=== PATIENT | female | born 1995 | race African-American/Black ===

== ENCOUNTER 2022-09-17 07:26 | Emergency (ER) | payer MEDICAID, OTHER ==
[~2022-09-17] VITALS: Ht 170.2 cm; Wt 72.0 kg
[2022-09-17] MEDS ORDERED: SODIUM CHLORIDE 0.9% 1,000 ML IV ONE (07:45)
[2022-09-17] MEDS ORDERED: LORAZEPAM 1MG TABLET PO ONE (07:45)
[2022-09-17 08:26] LABS: BASOPHILS % 0.8 % (0.0-2.0); EOSINOPHILS % 1.4 % (0.0-5.0); HEMATOCRIT. 37.6 % (36.0-48.0); HEMOGLOBIN. 12.8 g/dL (12.0-16.0); LYMPHOCYTES % 30.8 % (20.0-50.0); MEAN CORPUSCULAR HEMOGLOBIN 31.2 pg (28.0-32.0); MEAN CORPUSCULAR VOLUME 91.6 fL (81.0-99.0); MEAN PLATELET VOLUME 9.3 fl (7.4-10.4); MONOCYTES % 8.1 % (2.0-8.0); NEUTROPHILS % 58.9 % (40.0-76.0); PLATELET 278 x1000/uL (130-400); RED BLOOD CELL COUNT 4.11 mill/uL (4.2-5.4); RED CELL DISTRIBUTION WIDTH 13.8 % (11.6-14.6)
[2022-09-17 08:33] LABS: CHLORIDE 110 mEq/L (98-107)
[2022-09-17 08:42] LABS: ETHANOL BLOOD 90 mg/dL
[2022-09-17 08:58] LABS: HCG SCREEN NEGATIVE
[2022-09-17 09:04] LABS: CLARITY URINE CLEAR (CLEAR); COLOR URINE YELLOW (YELLOW); KETONES URINE TRACE (NEGATIVE); LEUKOCYTE ESTERASE URINE TRACE (NEGATIVE); NITRITE URINE NEGATIVE (NEGATIVE); OCCULT BLOOD URINE NEGATIVE (NEGATIVE); PH URINE 5.5 (4.5-8.0); PROTEIN URINE NEGATIVE (NEGATIVE); SPECIFIC GRAVITY URINE 1.005 (1.005-1.030); UROBILINOGEN URINE 0.2 E.U./dL (0.2-1.0)
[2022-09-17 10:17] LABS: *AMPHETAMINES SCREEN URINE NEGATIVE (NEGATIVE); *BARBITURATES SCREEN URINE NEGATIVE (NEGATIVE); METHADONE URINE SCREEN NEGATIVE (NEGATIVE); OPIATES URINE SCREEN NEGATIVE (NEGATIVE); PHENCYCLIDINE URINE SCREEN NEGATIVE (NEGATIVE)
[2022-09-17 10:28] LABS: *BENZODIAZEPINES SCREEN URINE PRESUMTIVE POSITIVE (NEGATIVE); *COCAINE SCREEN URINE PRESUMTIVE POSITIVE (NEGATIVE); CANNABINOID URINE SCREEN PRESUMTIVE POSITIVE (NEGATIVE)
[2022-09-17 11:42] VITALS: BP 110/71
== END 2022-09-17 11:43 | disposition home or self-care (01) ==
LOC: ER 07:26
DX: R56.9 Unspecified convulsions (principal)
CPT/HCPCS: 36415; 80053; 80305; 80320; 81003; 81025; 84703; 85025; 93005; 96360; 96361; 99284; J7030; G0480

== ENCOUNTER 2023-03-06 02:24 | Emergency (ER) | payer MEDICAID ==
[~2023-03-06] VITALS: Ht 172.7 cm; Wt 91.0 kg
[2023-03-06] MEDS ORDERED: LORAZEPAM 2MG/ML CPJ IV ONE (03:30)
[2023-03-06] MEDS ORDERED: SODIUM CHLORIDE 0.9% 1,000 ML IV ONE (03:30)
[2023-03-06 03:42] LABS: CHLORIDE 112 mEq/L (98-107)
[2023-03-06 03:45] LABS: BASOPHILS % 1.2 % (0.0-2.0); EOSINOPHILS % 1.5 % (0.0-5.0); HEMATOCRIT. 37.5 % (36.0-48.0); HEMOGLOBIN. 12.7 g/dL (12.0-16.0); LYMPHOCYTES % 37.1 % (20.0-50.0); MEAN CORPUSCULAR HEMOGLOBIN 31.5 pg (28.0-32.0); MEAN CORPUSCULAR VOLUME 92.9 fL (81.0-99.0); MEAN PLATELET VOLUME 9.8 fl (7.4-10.4); MONOCYTES % 6.4 % (2.0-8.0); NEUTROPHILS % 53.8 % (40.0-76.0); PLATELET 314 x1000/uL (130-400); RED BLOOD CELL COUNT 4.03 mill/uL (4.2-5.4); RED CELL DISTRIBUTION WIDTH 13.9 % (11.6-14.6)
[2023-03-06] MEDS ORDERED: ONDANSETRON HCL 4MG/2ML INJ IV ONE ×2 (04:15→05:30)
[2023-03-06] MEDS ORDERED: ONDA4TAB50 MT (05:54)
[2023-03-06 06:59] VITALS: BP 146/77
[2023-03-06 07:09] LABS: HCG SCREEN NEGATIVE
== END 2023-03-06 07:00 | disposition home or self-care (01) ==
LOC: ER 02:24
DX: F10.239 Alcohol dependence with withdrawal, unspecified (principal); Y90.0 Blood alcohol level of less than 20 mg/100 ml; J45.909 Unspecified asthma, uncomplicated
CPT/HCPCS: 36415; 80053; 84703; 85025; 96374; 96375; 96376; 99284; J2060; J2405; J7030

== ENCOUNTER 2024-10-01 01:33 | Emergency (ER) | payer MEDICAID ==
[~2024-10-01] VITALS: Ht 170.2 cm; Wt 107.0 kg
[~2024-10-01 01:33] MED LIST: ONDA4TAB50 MT
[2024-10-01 02:00] VITALS: O2SAT 99
[2024-10-01] MEDS: KETOROLAC 15MG/ML VIAL IM ONE (02:48)
[2024-10-01] MEDS ORDERED: LIDO700A15 TP (03:57)
[2024-10-01] MEDS ORDERED: NAPR-1176 MT (03:57)
[2024-10-01 04:08] VITALS: BP 134/67; PULSE 63; RESP 15; TEMP 36.66960; O2SAT 99
== END 2024-10-01 04:13 | disposition home or self-care (01) ==
LOC: ER 01:41
DX: D25.9 Leiomyoma of uterus, unspecified (principal); M25.561 Pain in right knee; J45.909 Unspecified asthma, uncomplicated
CPT/HCPCS: 99284; 81025; 72170; 73564; 96372; J1885

== ENCOUNTER 2024-12-25 14:12 | Emergency (ER) | payer MEDICAID ==
[~2024-12-25] VITALS: Ht 170.2 cm; Wt 104.0 kg
[~2024-12-25 14:12] MED LIST changes: +LIDO700A15 TP; +NAPR-1176 MT
[2024-12-25 14:24] VITALS: O2SAT 99
[2024-12-25 14:28] VITALS: BP 107/67; PULSE 95; RESP 12; TEMP 36.4; O2SAT 98
== END 2024-12-25 17:40 | disposition left against medical advice (07) ==
LOC: ER 14:12
DX: Z53.21 Procedure and treatment not carried out due to patient leaving prior to being seen by health care provider (principal)